=== PATIENT | female | born 1995 | race Caucasian/White ===

== ENCOUNTER 2017-11-17 04:50 | Emergency (ER) | payer BC ==
[2017-11-17 05:00] VITALS: BP 116/73; BMI 28.0
--- NOTE | 2017-11-17 05:21 | DR.GENAD ---
HPI - PCP Primary Care Physician: SUE - HPI Comment HPI Comment: PATIENT WOKE UP WITH RUQ ABDOMINAL PAIN AOCIATED WITH NAUSEA. NO FEVER. - Complaint/Symptoms Chief Complaint Doctors Comments: RUQ ABDOMINAL PAIN FEW HOURS. Chief Complaint:: PT STATES" I WOKE UP WITH A STABBING PAIN RIGHT HERE, I COULDN 'T WAIT TILL MORNING" PT POINTS TO RUQ - Nurses notes reviewed Nurses Notes Review: Yes - Source History Provided: Patient - Mode of Arrival Mode of Arrival: Ambulatory - Timing Onset of Chief Complaint: 11/17/17 Came on: Suddenly - Duration Duration: Constant Duration: Hours - Severity Severity: Moderate PMH - PMH Past Medical History: No Past Surgical History: No - Family History History of Family Medical Conditions: No - Social History Does patient currently use any type of tobacco product: No Have you used tobacco products in the last 12 months: No Type of Tobacco Use: None Does any household member use tobacco: No Alcohol Use: None Do you use any recreational Drugs:: No Lives With: Family Lives Where: Home - infectious screening In the last 2 months have you had wt loss of >10#?: NO Have you had fever, night sweats or hemotysis?: No Have you traveled outside the country in the last 6 months?: No Isolation: Standard ROS - Review of Systems Constitutional: No Symptoms Reported Eyes: No Symptoms Reported ENTM: No Symptoms Reported Respiratoy: No Symptoms Reported Cardiovascular: No Symptoms Reported Gastrointestinal/Abdominal: Abdominal Pain, Nausea Genitourinary: No Symptoms Reported Neurological: No Symptoms Reported Musculoskeletal: No Symptoms Reported Integumentary: No Symptoms Reported Hematologic/Lymphatic: No Symptoms Reported Endocrine: No Symptoms Reported Psychiatric: No Symptoms Reported All Other Systems: Reviewed and Negative PE - Vital Signs Vitals: Temperature 97.6 F Pulse Rate 65 Respiratory Rate 16 Blood Pressure 116/73 O2 Sat by Pulse Oximetry 98 - General Limitations: No Limitations General Appearance: Alert - Head Head Exam: Normal Inspection - Eyes Eye exam: Normal Appearance - ENT ENT Exam: Normal External Ear Exam External Ear Exam: Normal External Inspection TM/Canal Exam: Bilateral Normal Nose Exam: Normal Nose Exam Mouth Exam: Normal Inspection Throat Exam: Normal Inspection - Neck Neck Exam: Trachea Midline - Chest Chest Inspection: Symmetric Chest Wall Rise - Respiratory Respiratory Exam: Normal Lung Sounds Bilat Respiratory Exam: Bilateral Clear to Auscultation - Cardiovascular Cardiovascular Exam: Regular Rate, Normal Rhythm, Normal Heart Sounds - Abdominal Exam Abdominal Exam: Normal Bowel Sounds, Soft, Tenderness Abdominal Tenderness: RUQ, Other (RT CVA TENDERNESS) - Extremities Extremities Exam: Normal Inspection - Back Back Exam: (R) CVA Tenderness - Neurologic Neurological Exam: Alert, Oriented X3 - Psychiatric Psychiatric Exam: Normal Affect, Normal Mood - Skin Skin Exam: Normal Color MDM - Differential Diagnosis Differential Diagnosis: ABDOMINAL PAIN, CHOLECYSTITIS, KIDNEY STONE, CHOLELITHIASIS, UTI Course - Treatment Treatment: SEE ORDERS - Education/Counseling Education/Counseling: Patient, Education Educated On: Diagnosis, Needs for Follow Up ROR - Labs Reviewed Result Diagrams: 11/17/17 05:41 11/17/17 05:41 Laboratory: WBC 13.4 X10^3/uL (3.6-10.0) H 11/17/17 05:41 RBC 4.73 X10^6/uL (3.5-5.4) 11/17/17 05:41 Hgb 13.3 g/dL (12.0-16.0) 11/17/17 05:41 Hct 39.2 % (36.0-47.0) 11/17/17 05:41 MCV 82.9 fL (80.0-100.0) 11/17/17 05:41 MCH 28.2 pg (27.0-34.0) 11/17/17 05:41 MCHC 34.0 g/dL (33.0-35.0) 11/17/17 05:41 RDW 13.5 % (11.6-16.5) 11/17/17 05:41 Plt Count 344 X10^3/uL (150.0-450.0) 11/17/17 05:41 MPV 7.9 fL (7.4-11.0) 11/17/17 05:41 Neut % 68.5 % (42.0-75.0) 11/17/17 05:41 Lymph % 24.5 % (21.0-51.0) 11/17/17 05:41 [place] % 6.1 % (0.0-13.0) 11/17/17 05:41 Eos % 0.6 % (0.9-2.9) L 11/17/17 05:41 Baso % 0.3 % (0.2-1.0) 11/17/17 05:41 Neut # 9.2 x10^3/uL (2.2-4.8) H 11/17/17 05:41 Lymph # 3.3 X10^3/uL (1.3-2.9) H 11/17/17 05:41 [place] # 0.8 x10^3/uL (0.3-0.8) 11/17/17 05:41 Eos # 0.1 x10^3/uL (0.0-0.2) 11/17/17 05:41 Baso # 0.0 X10^3/uL (0.0-0.1) 11/17/17 05:41 Absolute Nucleated RBC 0.0 /100WBC 11/17/17 05:41 Sodium 140 mmol/L (136-145) 11/17/17 05:41 Corrected Sodium TNP 11/17/17 05:41 Potassium 3.5 mmol/L (3.5-5.1) 11/17/17 05:41 Chloride 105 mmol/L (98-107) 11/17/17 05:41 Carbon Dioxide 22.8 mmol/L (21-32) 11/17/17 05:41 BUN 12 mg/dL (7-18) 11/17/17 05:41 Creatinine 0.77 mg/dL (0.55-1.02) 11/17/17 05:41 Est GFR (MDRD) Af Amer > 60 (>60) 11/17/17 05:41 Est GFR (MDRD) Non-Af > 60 (>60) 11/17/17 05:41 Glucose 107 mg/dL (65-99) H 11/17/17 05:41 Calcium 8.7 mg/dL (8.5-10.1) 11/17/17 05:41 Corrected Calcium TNP 11/17/17 05:41 Total Bilirubin 0.20 mg/dL (0.2-1.0) 11/17/17 05:41 AST 19 Units/L (15-37) 11/17/17 05:41 ALT 35 Units/L (12-78) 11/17/17 05:41 Alkaline Phosphatase 126 Units/L (46-116) H 11/17/17 05:41 Total Protein 8.1 g/dL (6.4-8.2) 11/17/17 05:41 Albumin 3.9 g/dL (3.4-5.0) 11/17/17 05:41 Globulin 4.2 g/dL (2.5-4.5) 11/17/17 05:41 Albumin/Globulin Ratio 0.9 Ratio (1.1-2.1) L 11/17/17 05:41 Amylase 44 Units/L (25-115) 11/17/17 05:41 Lipase 126 Units/L (73-393) 11/17/17 05:41 HCG, Qual Negative <10 mIU/mL 11/17/17 05:41 Specimen Type Clean catch urine 11/17/17 05:50 Urine Color Yellow (YELLOW) 11/17/17 05:50 Urine Appearance Clear (CLEAR) 11/17/17 05:50 Urine pH 6.0 (5.0 - 8.0) 11/17/17 05:50 Ur Specific [place] 1.025 (1.000-1.030) 11/17/17 05:50 Urine Protein 1+ (NEGATIVE) 11/17/17 05:50 Urine Glucose (UA) Negative (NEGATIVE) 11/17/17 05:50 Urine Ketones Negative (NEGATIVE) 11/17/17 05:50 Urine Occult Blood 2+ (NEGATIVE) 11/17/17 05:50 Urine Nitrite Negative (NEGATIVE) 11/17/17 05:50 Urine Bilirubin Negative (NEGATIVE) 11/17/17 05:50 Urine Urobilinogen Normal (NORMAL) 11/17/17 05:50 Ur Leukocyte Esterase Negative (NEGATIVE) 11/17/17 05:50 Urine RBC 4-8 /HPF (NEGATIVE) 11/17/17 05:50 Urine WBC None seen /HPF (NEGATIVE) 11/17/17 05:50 Ur Squamous Epith Cells Few /HPF (NEGATIVE) 11/17/17 05:50 Urine Bacteria Trace /HPF (NEGATIVE) 11/17/17 05:50 Ur Culture Indicated? No/not indicated 11/17/17 05:50 - XRAY XRAY Interpreted by: Radiologist XRAY Findings: REPORT DISCUSS WITH PATIENT. - Diagnosis Discharge Problem: Abdominal pain Qualifiers: Abdominal location: right upper quadrant Qualified Code(s): R10.11 - Right upper quadrant pain Cholelithiasis Qualifiers: Cholelithiasis location: gallbladder Cholecystitis presence: without cholecystitis Biliary obstruction: without biliary obstruction Qualified Code(s) : K80.20 - Calculus of gallbladder without cholecystitis without obstruction - Discharge Plan Disposition: 01 HOME, SELF-CARE Condition: Stable Prescriptions: Acetaminophen with Codeine [Tylenol/Codeine #3 300-30 mg] 1 tab PO Q4-6H PRN # 15 tab PRN Reason: Pain Ondansetron [Zofran ODT 8 mg] 8 mg PO Q8H PRN #15 tab PRN Reason: Nausea/Vomiting - Follow ups/Referrals Follow ups/Referrals: NFD,None [Primary Care Provider] - 3 days SHALA DURAN [CONSULTING PHYSICIAN] - 3 days - Instructions Instructions: Cholelithiasis, Abdominal Pain, Adult, [id number] Additional Instructions: RETURN TO ED IF WORSE. YOU CAN FOLLOW UP WITH THE NEW SURGEON AT THIS HOSPITAL WHO WILL BE AVAILABLE IN NOVEMBER 2017.
[2017-11-17 05:56] LABS: BILIRUBIN,URINE NEGATIVE (NEGATIVE); BLOOD/HEMOGLOBIN,URINE 2+ (NEGATIVE); GLUCOSE, URINE NEGATIVE (NEGATIVE); KETONES,URINE NEGATIVE (NEGATIVE); LEUKOCYTE ESTERASE ,URINE NEGATIVE (NEGATIVE); NITRITES,URINE NEGATIVE (NEGATIVE); PROTEIN,URINE 1+ (NEGATIVE); UROBILINOGEN,URINE NORMAL (NORMAL)
[2017-11-17 06:08] LABS: SERUM PREGNANCY TEST, QUAL NEGATIVE <10 mIU/mL
[2017-11-17 06:11] LABS: APPEARANCE,URINE CLEAR (CLEAR); COLOR,URINE YELLOW (YELLOW)
[2017-11-17 06:11] LABS: ALANINE AMINOTRANSFERASE 35 Units/L (12-78); ALBUMIN 3.9 g/dL (3.4-5.0); ALKALINE PHOSPHATASE 126 Units/L (46-116); AMYLASE 44 Units/L (25-115); ASPARTATE AMINO TRANSFERASE 19 Units/L (15-37); BASOPHILS % (AUTO) 0.3 % (0.2-1.0); BLOOD UREA NITROGEN 12 mg/dL (7-18); CALCIUM 8.7 mg/dL (8.5-10.1); CARBON DIOXIDE 22.8 mmol/L (21-32); CHLORIDE 105 mmol/L (98-107); CREATININE 0.77 mg/dL (0.55-1.02); EOSINOPHILS # (AUTO) 0.1 x10^3/uL (0.0-0.2); EOSINOPHILS % (AUTO) 0.6 % (0.9-2.9); HEMATOCRIT 39.2 % (36.0-47.0); HEMOGLOBIN 13.3 g/dL (12.0-16.0); LIPASE 126 Units/L (73-393); LYMPHOCYTES # (AUTO) 3.3 X10^3/uL (1.3-2.9); LYMPHOCYTES % (AUTO) 24.5 % (21.0-51.0); MEAN CORPUSCULAR HEMOGLOBIN 28.2 pg (27.0-34.0); MEAN CORPUSCULAR VOLUME 82.9 fL (80.0-100.0); MEAN PLATELET VOLUME 7.9 fL (7.4-11.0); MONOCYTES # (AUTO) 0.8 x10^3/uL (0.3-0.8); MONOCYTES % (AUTO) 6.1 % (0.0-13.0); NEUTROPHILS # (AUTO) 9.2 x10^3/uL (2.2-4.8); NEUTROPHILS % (AUTO) 68.5 % (42.0-75.0); PLATELET COUNT 344 X10^3/uL (150.0-450.0); RED BLOOD COUNT 4.73 X10^6/uL (3.5-5.4); RED CELL DISTRIBUTION WIDTH 13.5 % (11.6-16.5); SODIUM 140 mmol/L (136-145); TOTAL PROTEIN 8.1 g/dL (6.4-8.2); WHITE BLOOD COUNT 13.4 X10^3/uL (3.6-10.0); eGFR BLACK RACES > 60 (>60); eGFR NON BLACK RACES > 60 (>60)
[2017-11-17 06:12] LABS: BACTERIA,URINE TRACE /HPF (NEGATIVE); SQUAMOUS EPITHELIAL CELL,UR FEW /HPF (NEGATIVE)
--- NOTE | 2017-11-17 06:57 | CT ---
HISTORY: Right upper quadrant pain Study: CT abdomen and pelvis without IV or oral contrast Comparison: No priors Technique: Multiple axial images of the abdomen and pelvis were obtained from the lung bases to the pubic symphy sis without the administration of IV or oral contrast. Dose reduction techniques utilized automatic exposure control. Coronal and sagittal images are also reviewed. Findings: The visualized portions of the lung bases are unremarkable. The liver, spleen, pancreas, kidneys, an d adrenal glands are unremarkable in their CT appearance. There are tiny calcifications present withi n the gallbladder layering dependently. These have the appearance of tiny calcified gallstones. These are best seen on series 3, image 42, series 3, image 15 and series 7, image 46. The should be confir med with ultrasound. No evidence of gallbladder wall thickening or pericholecystic fluid is seen.. N o significant mesenteric lymphadenopathy or stranding can be observed. No free fluid or free air is seen within the abdomen. No bowel wall thickening or bowel dilatation is present. The appendix is no rmal. The colon is unremarkable. Specifically, there is no diverticulosis noted within the sigmoid c olon. Uterus and adnexal structures are normal. The urinary bladder is grossly unremarkable. The bon y structures are grossly intact. IMPRESSION: Tiny calcified gallstones. The should be confirmed with ultrasound. No gallbladder wall thickening or pericholecystic fluid is seen. Remainder of the evaluation of the abdomen and pelvis by CT is normal. Reported By:
== END 2017-11-17 07:31 | disposition home or self-care (01) ==
LOC: ER 04:50
DX: K80.20 Calculus of gallbladder without cholecystitis without obstruction (principal); R10.11 Right upper quadrant pain
CPT/HCPCS: 36415; 74176; 80053; 81001; 82150; 83690; 84703; 85025; 99282; 99283; 99285

== ENCOUNTER 2025-06-03 07:26 | Observation (INO) ==
[2025-06-03 07:41] VITALS: BMI 29.2
[2025-06-03 08:03] LABS: MEAN PLATELET VOLUME 8.2 fL (7.4-11.0); RED CELL DISTRIBUTION WIDTH 13.2 % (11.6-16.5)
[2025-06-03 08:11] LABS: COR NA(FOR HYPERGLY) 140 mmol/L (136-145); CREATININE 0.68 mg/dL (0.55-1.02); eGFR NON BLACK RACES > 60 (>60)
[2025-06-03] MEDS: ZOFRAN INJ 4 MG VIAL IVP ONE (08:17)
--- NOTE | 2025-06-03 08:27 | DR.GENAD ---
HPI Time Seen Time Seen by Provider: 06/03/25 08:27 PCP Primary Care Physician: none Complaint/Symptoms Chief Complaint Doctors Comments: 29 yo F, diagnosed with cholelithiasis 5y ago, c/o RUQ abd pain for past 8h, accomp by 5 episodes of emesis. Denies other complaints. States pain is worse than prior "gall-bladder flares." Denies other complaints. Chief Complaint:: pt states that she was diganosed with cholelithiasis 5 years ago and has had episodes where it will flare up, but this time the pain has lasted longer. Around midnight is when she started to have pain in her RUQ and been having chills. She also c/o vomiting x5 this morning Source History Provided: Patient Mode of Arrival Mode of Arrival: Ambulatory Timing Onset of Chief Complaint: 06/02/25 PMH PMH Past Medical History: No Past Surgical History: No Family History History of Family Medical Conditions: Yes Family Medical History: Diabetes Mellitus, Cancer, OR and Hypertension Social History Does patient currently use any type of tobacco product: No Have you used tobacco products in the last 12 months: No Type of Tobacco Use: None Alcohol Use: None Do you use any recreational Drugs:: No Lives With: Family Lives Where: Home Infectious screening Have you traveled outside the country in the last 6 months?: No Isolation: Standard ROS Review of Systems Constitutional: negative Fever Gastrointestinal/Abdominal: Abdominal Pain, Nausea and Vomiting All Other Systems: Reviewed and Negative PE Vital Signs Vitals: Vital Signs Temperature 97.9 F Pulse Rate 73 Respiratory Rate 18 Respiratory Rate 18 Blood Pressure 124/66 O2 Sat by Pulse Oximetry 97 General Limitations: No Limitations General Appearance: Alert and In No Apparent Distress Head Head Exam: Normal Inspection Eyes Eye exam: Normal Appearance ENT ENT Exam: Normal Exam External Ear Exam: Normal External Inspection TM/Canal Exam: Bilateral: Normal Nose Exam: Normal Nose Exam Mouth Exam: Normal Inspection Throat Exam: Normal Inspection Neck Neck Exam: Normal Inspection Chest Chest Inspection: Normal Inspection Respiratory Respiratory Exam: Normal Lung Sounds Bilat Respiratory Exam: Bilateral: Clear to Auscultation Cardiovascular Cardiovascular Exam: Regular Rate and Normal Rhythm Abdominal Exam Abdominal Exam: Tenderness (RUQ) and Guarding; negative Rebound Extremities Extremities Exam: Normal Inspection Back Back Exam: Normal Inspection Neurologic Neurological Exam: Alert and Oriented X3 Psychiatric Psychiatric Exam: Normal Affect and Normal Mood Skin Skin Exam: Warm, Dry, Intact and Normal Color ROR Labs Reviewed Laboratory Results Reviewed?: Yes 06/03/25 07:52 06/03/25 07:52 Laboratory: WBC 14.1 X10^3/uL (3.6-10.0) H 06/03/25 07:52 RBC 4.48 X10^6/uL (3.5-5.4) 06/03/25 07:52 Hgb 13.1 g/dL (12.0-16.0) 06/03/25 07:52 Hct 38.8 % (36.0-47.0) 06/03/25 07:52 MCV 86.7 fL (80.0-100.0) 06/03/25 07:52 MCH 29.2 pg (27.0-34.0) 06/03/25 07:52 MCHC 33.7 g/dL (33.0-35.0) 06/03/25 07:52 RDW 13.2 % (11.6-16.5) 06/03/25 07:52 Plt Count 302 X10^3/uL (150.0-450.0) 06/03/25 07:52 MPV 8.2 fL (7.4-11.0) 06/03/25 07:52 Neut % (Auto) 87.7 % (42.0-75.0) H 06/03/25 07:52 Lymph % (Auto) 10.1 % (21.0-51.0) L 06/03/25 07:52 [place] % (Auto) 1.8 % (0.0-13.0) 06/03/25 07:52 Eos % (Auto) 0.1 % (0.9-2.9) L 06/03/25 07:52 Baso % (Auto) 0.3 % (0.2-1.0) 06/03/25 07:52 Neut # (Auto) 12.4 x10^3/uL (2.2-4.8) H 06/03/25 07:52 Lymph # (Auto) 1.4 X10^3/uL (1.3-2.9) 06/03/25 07:52 [place] # (Auto) 0.2 x10^3/uL (0.3-0.8) L 06/03/25 07:52 Eos # (Auto) 0.0 x10^3/uL (0.0-0.2) 06/03/25 07:52 Baso # (Auto) 0.0 X10^3/uL (0.0-0.1) 06/03/25 07:52 Absolute Nucleated RBC 0.0 /100WBC 06/03/25 07:52 Sodium 139 mmol/L (136-145) 06/03/25 07:52 Corrected Sodium 140 mmol/L (136-145) 06/03/25 07:52 Potassium 3.8 mmol/L (3.5-5.1) 06/03/25 07:52 Chloride 102 mmol/L (98-107) 06/03/25 07:52 Carbon Dioxide 28.9 mmol/L (21-32) 06/03/25 07:52 BUN 9 mg/dL (7-18) 06/03/25 07:52 Creatinine 0.68 mg/dL (0.55-1.02) 06/03/25 07:52 Est GFR (MDRD) Af Amer > 60 (>60) 06/03/25 07:52 Est GFR (MDRD) Non-Af > 60 (>60) 06/03/25 07:52 Glucose 129 mg/dL (65-99) H 06/03/25 07:52 Calcium 9.0 mg/dL (8.5-10.1) 06/03/25 07:52 Corrected Calcium TNP 06/03/25 07:52 Total Bilirubin 0.40 mg/dL (0.2-1.0) 06/03/25 07:52 AST 33 Units/L (15-37) 06/03/25 07:52 ALT 72 Units/L (12-78) 06/03/25 07:52 Alkaline Phosphatase 95 Units/L (46-116) 06/03/25 07:52 Total Protein 9.6 g/dL (6.4-8.2) H 06/03/25 07:52 Albumin 4.4 g/dL (3.4-5.0) 06/03/25 07:52 Globulin 5.2 g/dL (2.5-4.5) H 06/03/25 07:52 Albumin/Globulin Ratio 0.8 Ratio (1.1-2.1) L 06/03/25 07:52 Opioid Opioid Risk Tool Total: 0 Total Score Risk Category: Low Risk Copyright: Dieudonne FERRARA predicting aberrant behaviors Discharge Plan Diagnosis Discharge Problem: Biliary colic Cholelithiasis Qualifiers: Cholelithiasis location: gallbladder Cholecystitis presence: without cholecystitis Biliary obstruction: without biliary obstruction Qualified Code(s): K80.20 - Calculus of gallbladder without cholecystitis without obstruction Discharge Plan Patient Disposition: ADMITTED INPATIENT Condition: Stable Prescriptions: No Action norgestimate-ethinyl estradiol [Tri-Estarylla] 0.18/0.215/0.25 mg-0.035mg (28) tablet 1 tab PO QDAY Health Concerns: Post Hospitalization: new medications and changes needed to prevent readmission or further decline. Pt educated and given instructions on all concerns. Plan of Treatment: Continue with present treatment and follow up plan. Pt is to keep follow up appointment as instructed and take medications as ordered. Orders to Discharge Patient Discharge Orders: Transfer (Routine); Ordered 06/03/25 Ordered By: Raphael Alexander Follow ups/Referrals Follow ups/Referrals: NFD,None [Primary Care Provider] - 3 days Instructions Stand Alone Forms: Find Help Web Site, Post Hospital Follow Up Care Print Language: [place] ADDITIONAL NOTES Additional Notes Additional Notes: Admit to Dr Sharp, plans to perform cholecystectomy tomorrow.
[2025-06-03] MEDS: MORPHINE SULFATE INJ 4 MG IVP ONE (08:36)
--- NOTE | 2025-06-03 09:21 | US ---
EXAM: Ultrasound gallbladder HISTORY: Right upper quadrant pain TECHNIQUE: Multiple grayscale sonographic images were obtained COMPARISON: None FINDINGS: Liver is normal in size and configuration and without cyst, mass, or biliary ductal dilatation. An area of hyperechogenicity near the angelia hepatis may represent some focal fat deposition. Portal venous blood flow was hepatopetal. Hepatic artery was patent. Hepatic venous blood flow was hepatofugal cholelithiasis is present. No evidence for cholecystitis. Common duct measured 3.2 mm. Right kidney measured 10.5 cm in length. No solid masses, hydro nephrosis, stones, or perinephric fluid collections are identified. Pancreas was normal. IMPRESSION: Cholelithiasis without evidence for cholecystitis THIS IS AN ELECTRONICALLY VERIFIED FINAL REPORT 06/03/2025 9:09 AM - Electronically signed by Dinesh Foreman MD
[2025-06-03] MEDS ORDERED: ULTANE GAS IN ONE (09:46)
[2025-06-03] MEDS ORDERED: PRECEDEX INJ VIAL ONE (09:46)
[2025-06-03] MEDS ORDERED: KETAMINE HCL ONE (09:46)
[2025-06-03] MEDS ORDERED: XYLOCAINE 2 % (PLAIN) ONE (09:46)
--- NOTE | 2025-06-03 10:25 | RAD ---
EXAM: CHEST, 1 VIEW HISTORY: PRE OP - GB; COMPARISON: No relevant prior studies were available for comparison at the time of interpretation. TECHNIQUE: CHEST, 1 VIEW FINDINGS: Chest: Lines and tubes: None Mediastinum: Cardiac and mediastinal shadow is within normal limits for size and contour. Pulmonary vessels: No pulmonary vascular congestion. Lung moore: No suspicious airspace opacity. Pleura: No effusion. No pneumothorax. Bones and soft tissues: No acute osseous or soft tissue abnormality. IMPRESSION: 1. No acute cardiopulmonary abnormality THIS IS AN ELECTRONICALLY VERIFIED FINAL REPORT 06/03/2025 10:16 AM - Electronically signed by Eldon Clemens MD
[2025-06-03] MEDS: LEVAQUIN PREMIX IV 500 MG 500 MG/100 ML BAG IV SCH (11:03)
[2025-06-03] MEDS: D5 1/2 NS 1,000 ML 1,000 ML IV SCH (11:03)
[2025-06-03] MEDS: MORPHINE SULFATE INJ 4 MG ONE (11:08)
[2025-06-03] MEDS: ZOFRAN INJ 4 MG VIAL ONE (11:08)
--- NOTE | 2025-06-03 11:09 | EKG ---
Test Reason : pre-op Blood Pressure : */* mmHG Vent. Rate : 62 BPM Atrial Rate : 62 BPM P-R Int : 136 ms QRS Dur : 72 ms QT Int : 406 ms P-R-T Axes : 24 50 44 degrees QTc Int : 412 ms Normal sinus rhythm Normal ECG No previous ECGs available Confirmed by Elton Lainez MD ([id number]) on 06/03/2025 2:32:59 PM Referred By: Confirmed By: Elton Lainez MD
[2025-06-03] MEDS: MORPHINE SULFATE INJ 2 MG INJ IVP PRN (11:11)
[2025-06-03] MEDS: ZOFRAN INJ 4 MG VIAL IVP PRN (15:15)
[2025-06-04] MEDS: HIBICLENS WASH EXT ONE (04:53)
[2025-06-04 05:23] LABS: MEAN PLATELET VOLUME 8.8 fL (7.4-11.0); RED CELL DISTRIBUTION WIDTH 12.9 % (11.6-16.5)
[2025-06-04 05:45] LABS: COR NA(FOR HYPERGLY) 138 mmol/L (136-145); CREATININE 0.70 mg/dL (0.55-1.02); eGFR NON BLACK RACES > 60 (>60)
[2025-06-04] MEDS ORDERED: CONSULT PHARMACY - POTASSIUM & MAGNESIUM XX SCH (07:00)
[2025-06-04] MEDS: FENTANYL VIAL INJ 100 mcg ONE (07:45)
[2025-06-04] MEDS: BRIDION ONE (07:45)
[2025-06-04] MEDS: TORADOL 30 MG VIAL ONE (07:45)
[2025-06-04] MEDS: DIPRIVAN VIAL 20 ML ONE (07:45)
[2025-06-04] MEDS: ZEMURON 100 MG VIAL ONE (07:45)
[2025-06-04] MEDS: ZOFRAN INJ 4 MG VIAL ONE (07:45)
[2025-06-04] MEDS: VERSED ONE (07:45)
[2025-06-04] MEDS: REGLAN INJ 10 MG VIAL ONE (07:45)
[2025-06-04] MEDS: OFIRMEV IV 1000 MG VIAL 1,000 MG/100 ML VIAL IV ONE (07:45)
[2025-06-04] MEDS: DECADRON INJ ONE (07:46)
[2025-06-04] MEDS: LR 1,000 ML IV 1,000 ML IV ONE ×2 (07:54→10:51)
[2025-06-04] MEDS ORDERED: NS IRRIGATION* 1,000 ML IR ONE (08:00)
[2025-06-04] MEDS: LR 1,000 ML IV 900 ML IV PRN (08:00)
[2025-06-04] MEDS: ZOFRAN INJ 4 MG VIAL IVP PRN (08:09)
[2025-06-04] MEDS: REGLAN INJ 10 MG VIAL IVP PRN (08:09)
[2025-06-04] MEDS: PEPCID 20 MG VIAL IVP PRN (08:09)
[2025-06-04] MEDS: DECADRON INJ IVP PRN (08:10)
[2025-06-04] MEDS: PEPCID 20 MG VIAL ONE (08:22)
[2025-06-04] MEDS: ANCEF VIAL 1 GRAM IV PRN (08:25)
[2025-06-04] MEDS: ANCEF VIAL 1 GRAM ONE (08:28)
[2025-06-04] MEDS: VERSED IVP PRN (08:29)
[2025-06-04] MEDS: NS 100 ML IV 100 ML ONE (08:32)
[2025-06-04] MEDS: PRECEDEX INJ VIAL IVP PRN (08:33)
[2025-06-04] MEDS: FENTANYL VIAL INJ 100 mcg IVP PRN (08:34)
[2025-06-04] MEDS: DIPRIVAN VIAL 160 ML IVP PRN (08:35)
[2025-06-04] MEDS ORDERED: XYLOCAINE 2 % (PLAIN) PRN (08:35)
[2025-06-04] MEDS: KETAMINE HCL IV PRN (08:37)
[2025-06-04] MEDS: NEO-SYNEPHRINE INJ ONE (08:40)
[2025-06-04] MEDS: NEO-SYNEPHRINE INJ IVP PRN (08:59)
[2025-06-04] MEDS ORDERED: BENADRYL INJ 50 MG VIAL IVP PRN (09:04)
[2025-06-04] MEDS ORDERED: DILAUDID INJ IVP PRN (09:04)
[2025-06-04] MEDS ORDERED: BARHEMSYS INJ IVP PRN (09:04)
[2025-06-04] MEDS ORDERED: ZOFRAN INJ 4 MG VIAL IVP PRN ×2 (09:04→10:31)
[2025-06-04] MEDS: DILAUDID INJ ONE (09:13)
[2025-06-04] MEDS: TORADOL 30 MG VIAL IVP PRN (09:15)
[2025-06-04] MEDS: ZEMURON 100 MG VIAL IVP PRN (09:21)
[2025-06-04] MEDS: DILAUDID INJ IVP PRN (09:37)
[2025-06-04] MEDS: OFIRMEV IV 1000 MG VIAL 1,000 MG/100 ML VIAL IV PRN (09:39)
[2025-06-04] MEDS: MARCAINE 0.5% ONE (09:48)
[2025-06-04] MEDS: BRIDION IVP PRN (09:48)
[2025-06-04] MEDS: BACTROBAN TOPICAL OINT ONE (09:51)
[2025-06-04] MEDS: MAG-OX TAB PO SCH ×2 (11:01→12:00)
[2025-06-04] MEDS: K-DUR TAB 20 MEQ PO SCH ×2 (13:10→19:05)
[2025-06-04] MEDS ORDERED: ANCEF VIAL 1 GRAM 1 G in NS 100 ML IV 100 ML IV SCH (14:00)
[2025-06-05 03:46] VITALS: O2SAT 98
[2025-06-05 05:09] LABS: MEAN PLATELET VOLUME 8.5 fL (7.4-11.0); RED CELL DISTRIBUTION WIDTH 13.1 % (11.6-16.5)
[2025-06-05 05:15] LABS: COR CA(FOR HYPOALB) 9.0 mg/dL (8.5-10.1); CREATININE 0.56 mg/dL (0.55-1.02); eGFR NON BLACK RACES > 60 (>60)
[2025-06-05] MEDS: NORCO 5/325 MG TAB PO PRN (08:34)
[2025-06-05 08:36] VITALS: RESP 18
[2025-06-05 09:00] VITALS: BP 111/65; PULSE 92; TEMP 98.3
== END 2025-06-05 11:00 | disposition home or self-care (01) ==
LOC: ER 07:26 → MED/SURG 07:26
PROVIDERS: ADMIT Surgery; ATTEND Surgery
DX: R94.8 Abnormal results of function studies of other organs and systems; E83.42 Hypomagnesemia; R10.84 Generalized abdominal pain; K82.8 Other specified diseases of gallbladder; Z01.811 Encounter for preprocedural respiratory examination; E87.6 Hypokalemia; K80.13 Calculus of gallbladder with acute and chronic cholecystitis with obstruction; Z01.810 Encounter for preprocedural cardiovascular examination; R73.09 Other abnormal glucose; E83.51 Hypocalcemia; K66.0 Peritoneal adhesions (postprocedural) (postinfection); K82.1 Hydrops of gallbladder; R11.2 Nausea with vomiting, unspecified; R10.11 Right upper quadrant pain